=== PATIENT | male | born 1975 | race Caucasian/White ===

== ENCOUNTER 2024-09-10 09:52 | Outpatient (CLI) | payer OTHER, SELFPAY ==
--- NOTE | ~2024-09-10 | XR_ITS ---
EXAM: XR lumbar spine 2-3V DATE: 09/10/2024 10:15 HISTORY: BACK PAIN, R LS Radiculopathy . COMPARISON: None available. FINDINGS: 5 nonrib-bearing lumbar-type vertebral bodies. Pedicles intact. Normal vertebral body alig nment. Vertebral body heights preserved. Mild disc space narrowing at L2-3 and L3-4. Left lateral mar ginal osteophyte at L2-3. Moderate disc space narrowing at L4-5 and L5-S1. Mild lower lumbar facet hy pertrophy and sclerosis. Atherosclerotic aortic calcification without evident aneurysm. No fracture o r dislocation. IMPRESSION: Multilevel lumbar degenerative disc disease, moderate at L4-5 and L5-S1. Mild lower lumba r facet arthropathy. Reviewed, dictated and finalized at location [facility] IMPRESSION: Multilevel lumbar degenerative disc disease, moderate at L4-5 and L 5-S1. Mild lower lumbar facet arthropathy.
== END 2024-09-10 09:53 | disposition home or self-care (01) ==
LOC: CHSIMG 09:59
PROVIDERS: PCP Internal Medicine; Visit Provider Internal Medicine
DX: M54.16 Radiculopathy, lumbar region (principal); M51.379 Other intervertebral disc degeneration, lumbosacral region without mention of lumbar back pain or lower extremity pain
CPT/HCPCS: 72100

== ENCOUNTER 2024-12-25 09:21 | Outpatient (CLI) | payer OTHER, SELFPAY ==
--- NOTE | ~2024-12-25 | CT_ITS ---
Non-contrast CT scan of the Abdomen and Pelvis Clinical indication: Right flank pain Technique: 2.5 mm axial scans were obtained through the abdomen and pelvis without intravenous or or al contrast. Dose reduction technique was used on this scan by utilizing automated exposure control a nd iterative reconstruction technique. The dose-length product (DLP) was 431.06 mGy-cm. Findings: Images through the lung bases reveal no abnormalities. There is no evidence of renal or ureteral calculi. The kidneys and the ureters are nondilated. The liver, spleen, pancreas, and adrenals appear normal. Calcified gallstone present. There is no aor tic aneurysm. There is no evidence of bowel obstruction. Images through the pelvis were performed. There is no evidence of ascites or lymphadenopathy. Urinary bladder unremarkable. No pelvic mass seen. Impression: Cholelithiasis. No other significant findings. Reviewed, dictated and finalized at [facility]. Impression: Cholelithiasis. No other significant findings.
== END 2024-12-25 09:22 | disposition home or self-care (01) ==
LOC: CHSIMG 09:26
PROVIDERS: PCP Internal Medicine; Visit Provider Internal Medicine
DX: R10.31 Right lower quadrant pain (principal); R31.9 Hematuria, unspecified; K80.20 Calculus of gallbladder without cholecystitis without obstruction
CPT/HCPCS: 74176

== ENCOUNTER 2025-01-08 10:27 | Outpatient (CLI) | payer OTHER, SELFPAY ==
--- NOTE | 2025-01-08 | CY_PTH ---
PATIENT: Ian Clements LOC: [facility] U#:[id number] AGE/SX: 49/M ROOM: RE01/08/[address]: Robert Bejarano MD : 1975 BED: DIS: 01/08/2025 SPEC #: [id number] RECD: 01/08/25 10:34 STATUS: SANDRA RESingh #: [id number] BRUCE: 01/08/25 00:[address]: Robert Bejarano DEPT: [facility] Cytology RECD BY: Kristi Gramajo MLT, ([facility]) Tissues: A - Thin Prep Non-Gyne Procedures: Thin Prep Non-earth mover
[2025-01-08 10:42] LABS: Hematocrit 47.6 % (40.0-54.0); Hemoglobin 15.8 g/dL (14.0-18.0); Mean Corpuscular HGB Conc 33.2 g/dL (32-36); Mean Corpuscular Hemoglobin 29.8 pg (27.0-31.0); Mean Corpuscular Volume 89.6 fL (78.0-102.0); Mean Platelet Volume 9.2 fl (8.7-11.0); Platelet Count Result 262 K/mm3 (150-420); Red Blood Count 5.31 M/mm3 (4.70-6.10); Red Cell Distribution Width 13.3 % (11.6-14.4); White Blood Count 9.9 K/mm3 (4.8-10.8)
[2025-01-08 10:46] LABS: Add Urine Microscopic? YES; Appearance Urine Clear (Clear); Bilirubin Urine Negative (Negative); Blood Urine 2+ (Negative); Color Urine Yellow (Yellow); Glucose Urine UA Negative (Negative); Ketones Urine Negative (Negative); Leukocyte Esterase Ur Negative (Negative); Nitrate Urine Negative (Negative); Protein Urine Trace (Negative); Specific Grav Ur 1.025 (1.010-1.020)
[2025-01-08 10:50] LABS: WBC Urine None seen /hpf (0-3)
[2025-01-08 10:51] LABS: Bacteria Urine Rare /hpf; Mucus Urine Moderate /lpf
== END 2025-01-08 10:28 | disposition home or self-care (01) ==
PROVIDERS: PCP Internal Medicine; Visit Provider Internal Medicine
DX: R31.9 Hematuria, unspecified (principal)
CPT/HCPCS: 36415; 81001; 85027; 88112